=== PATIENT | male | born 1975 | race Caucasian/White ===

== ENCOUNTER 2017-01-15 16:16 | Inpatient (IN) | payer MEDICAID ==
[~2017-01-15] VITALS: Ht 180.3 cm; Wt 121.4 kg
[2017-01-15 17:18] LABS: BASOPHIL % 0.3 % (0-2); PLATELET COUNT 185 x10^3mcL (130-400); RED CELL DISTRIBUTION WIDTH 14.2 % (11.5-14.5)
--- NOTE | 2017-01-15 17:25 | NUR ---
PT PRESENTS TO ED WITH THE COMPLAINT OF EPIGASTRIC AND SUPRA PUBIC ABDOMINAL PAIN WHICH HAS BEEN INTERMITTENT X 4 DAYS. PT ALSO HAS A COMPLAINT OF NAUSEA AND VOMITING. PT ADMITS TO USING [employer]. MSE COMPLETED BY DR. DELA CRUZ
[2017-01-15 17:47] LABS: CALCIUM 8.9 mg/dL (8.5-10.1); CARBON DIOXIDE 25.5 mmol/L (21-32); CHLORIDE SERUM 101 mmol/L (98-107); CREATININE SERUM 1.2 mg/dL (0.7-1.3); GFR1 > 60 mL/min; GLUCOSE SERUM 119 mg/dL (74-106); POTASSIUM SERUM 3.4 mmol/L (3.5-5.1); SODIUM SERUM 138 mmol/L (136-145)
--- NOTE | 2017-01-15 17:47 | NUR ---
URINE DIP 4+ KETONES, TRACE PROTEIN. SENT TO LAB FOR UDS.
[2017-01-15 17:54] LABS: ALBUMIN 4.2 g/dL (3.4-5.0); ALKALINE PHOSPHATASE 65 U/L (46-116); ALT/SGPT 22 U/L (16-63); AMYLASE 48 U/L (25-115); AST/SGOT 18 U/L (15-37); BILIRUBIN TOTAL 1.08 mg/dL (0.20-1.00); LIPASE 148 IU/L (73-393); TOTAL PROTEIN, SERUM 7.6 g/dL (6.4-8.2)
[2017-01-15 18:04] LABS: AMPHETAMINE QUAL UR NONE DETECTED (NEG <=1000)
--- NOTE | 2017-01-15 18:15 | NUR ---
PT WENT TO AND FROM CT WITHOUT INCIDENCE
--- NOTE | 2017-01-15 18:50 | NUR ---
BED ADJUSTED, EXTRA BLANKET GIVEN, & ROOM DARKENED PER PT REQUEST.
--- NOTE | 2017-01-15 19:02 | NUR ---
RECEIVEDR DANO FROM [facility] TO ASSUME CARE OF PT.
--- NOTE | 2017-01-15 20:11 | NUR ---
REPROT CALLED TO [facility] BY KEITH Ramon. CONFIRMED THIS BY CALLING [phone] AND YULIANA.
[2017-01-15 20:35] VITALS: BP 116/67
[2017-01-15 20:44] LABS: CHOLESTEROL/HDL RATIO 3.9; PHOSPHOROUS 1.8 mg/dL (2.5-4.9)
[2017-01-15 20:50] LABS: T3 TOTAL 1.23 ng/mL
[2017-01-15 20:51] LABS: FREE T4 1.47 ng/dL (0.76-1.46); T4(THYROXINE) 11.4 ug/dL (4.7-13.3)
--- NOTE | 2017-01-15 21:00 | NUR ---
RECEIVED PT VIA GURNEY ACCOMPANIED BY THE NURSE AND THE PATIENTS SIGNIFICANT OTHER. PT IS A/A/O X4. DENIES DIZZINESS AND HEADACHE. BREATH SOUNDS CLEAR. BREATHING EVEN AND UNLABORED ON ROOM AIR, SPO2 99%. DENIES CHEST PAIN AND PRESSURE. ON TELE # 21, SINUS ARRHYTHMIA WITH EPISODES OF SINUS RHYTHYM ON THE MONITOR. BOWEL SOUNDS ACTIVE. C/O EPIGASTRIC PAIN WITH PAIN LEVEL OF 7/10. DENIES NEED OF PAIN MEDICATION, STATING "PAIN IS GOING DOWN.". NO C/O NAUSEA AND VOMITING THUS FAR. IV INTACT ON THE LEFT HAND INFUSING WITH NS AT 100 ML/HR. MADE PT COMFORTABLE. PLACED CALL LIGHT WITH IN REACH. WILL CONTINUE TO MONITOR.
--- NOTE | 2017-01-15 21:05 | NUR ---
PATIENTS LEFT LEG OBSERVED TO BE BIGGER THAN THE RIGHT LEG. MADE PT COMFORTABLE. WILL CONTINUE TO MONITOR.
[2017-01-15 21:08] LABS: UA SPECIFIC GRAVITY 1.015 (1.005-1.035); microscopic required? YES; urine erythrocyte NEGATIVE (NEGATIVE)
[2017-01-15 22:01] VITALS: BP 116/69
[2017-01-15 23:43] VITALS: BP 121/60
--- NOTE | 2017-01-15 23:43 | NUR ---
WAS NOTIFIED BY THE WEB ART DIRECTOR THAT THE PT HAS ELEVATED T WAVE FROM SINUS RHYTHYM. PT ASSYMPTOMATIC. VITAL SIGNS STABLE. DR. AGUIRRE NOTIFIED. NO NEW ORDERS GIVEN. WILL CONTINUE TO MONITOR.
--- NOTE | 2017-01-16 00:23 | NUR ---
PT C/O ABD PAIN. GAVE PT MORPHINE IVP. PT TOLERATED IT WELL. WILL CONTINUE TO MONITOR.
[2017-01-16 05:20] VITALS: BP 114/72
[2017-01-16 06:27] LABS: BASOPHIL % 0.1 % (0-2); PLATELET COUNT 156 x10^3mcL (130-400); RED CELL DISTRIBUTION WIDTH 14.4 % (11.5-14.5)
--- NOTE | 2017-01-16 06:37 | NUR ---
PT QUIET AND RESTING. PAIN LEVEL OF ABD 6/10. DENIES NEED FOR PAIN MEDICATION. NO C/O NAUSEA. IV INTACT AND INFUSING ORDERED. MADE PT COMFORTABLE. WILL ENDORSE TO THE AM NURSE ACCORDINGLY.
[2017-01-16 06:45] LABS: CARBON DIOXIDE 25.5 mmol/L (21-32); CHLORIDE SERUM 105 mmol/L (98-107); CREATININE SERUM 1.1 mg/dL (0.7-1.3); GFR1 > 60 mL/min; GLUCOSE SERUM 106 mg/dL (74-106); POTASSIUM SERUM 3.1 mmol/L (3.5-5.1); SODIUM SERUM 138 mmol/L (136-145)
--- NOTE | 2017-01-16 07:15 | NUR ---
PT WAS ENDORSE TO ME THIS MORNING. PT A/O X4. PT BREATHING EVEN AND UNLABORED. PT DENIES ANY ABD PAIN AND NAUSEA AT THIS TIME. IV INFUSING TO THE L HAND AT 100 ML/HR AT NS. NO REDNESS OR SWELLING NOTED. CALL LIGHT IN REACH. BED IN LOW POSITION. WILL CONTINUE PLAN OF CARE.
[2017-01-16 11:13] VITALS: BP 114/86
--- NOTE | 2017-01-16 13:00 | NUR ---
PT ATE HIS LUNCH. STATED TOLERATED IT WELL. PT IS BY HIS SIDE. PT DENIES ANY PAIN AT THIS TIME. CALL LIGHT IN REACH. BED IN LOW POSITION. WILL CONTINUE PLAN OF CARE.
--- NOTE | 2017-01-16 13:19 | NUR ---
PT C/O ABD PAIN 11/22. WILL MEDICATED WITH NORCO. WILL CONTINUE PLAN OF CARE.
[2017-01-16 17:44] VITALS: BP 114/81
--- NOTE | 2017-01-16 19:01 | NUR ---
PT IS RESTING WATCHING TV. PT DENIES ANY ABD PAIN AT THIS TIME. VS STABLE. IV TO L HAND NS AT 100 ML/HR. NO REDNESS OR SWELLING NOTED. CALL LIGHT IN REACH. BED IN LOW POSITION. WILL ENDORSE PT TO INCOMING NURSE.
--- NOTE | 2017-01-16 19:55 | NUR ---
PT A/A/O X4. DENIES DIZZINESS AND HEADACHE. BREATH SOUNDS CLEAR. BREATHING EVEN AND UNLABORED ON ROOM AIR. DENIES CHEST PAIN AND PRESSURE. BOWEL SOUNDS ACTIVE. NO C/O N/V AND ABD PAIN THUS FAR. NOTED THAT LEG LEG IS BIGGER THAN THE RIGHT LEG. NO C/O PAIN THUS FAR. IV INTACT ON THE LEFT HAND INFUSING WITH NS AT 100 ML/HR. MADE PT COMFORTABLE. PLACED CALL LIGHT WITH IN REACH. WILL CONTINUE TO MONITOR.
[2017-01-16 20:57] VITALS: BP 112/58; BP 117/74
--- NOTE | 2017-01-17 00:16 | NUR ---
PT RESTING WITH EYES CLOSED. SHOWS NO DISTRESS AND DISCOMFORT. MADE PT COMFORTABLE. WILL CONTINUE TO MONITOR.
--- NOTE | 2017-01-17 05:08 | NUR ---
PT RESTING WITH EYES CLOSED. EASILY AROUSABLE WITH VERBAL STIMULI. NO C/O ABD PAIN AND NAUSEA THUS FAR. IV INTACT AND INFUSING ORDERED. MADE PT COMFORTABLE. WILL ENDORSE TO THE AM NURSE ACCORDINGLY.
[2017-01-17 05:59] VITALS: BP 105/51
[2017-01-17 06:31] LABS: CARBON DIOXIDE 26.6 mmol/L (21-32); CHLORIDE SERUM 107 mmol/L (98-107); CREATININE SERUM 1.1 mg/dL (0.7-1.3); GFR1 > 60 mL/min; GLUCOSE SERUM 87 mg/dL (74-106); MAGNESIUM 1.9 mg/dL (1.8-2.4); PHOSPHOROUS 3.6 mg/dL (2.5-4.9); POTASSIUM SERUM 3.8 mmol/L (3.5-5.1); SODIUM SERUM 142 mmol/L (136-145)
[2017-01-17 07:03] LABS: BASOPHIL % 0.1 % (0-2); PLATELET COUNT 155 x10^3mcL (130-400); RED CELL DISTRIBUTION WIDTH 14.1 % (11.5-14.5)
--- NOTE | 2017-01-17 07:35 | NUR ---
RECEIVED PT IN NO ACUTE DISTRESS. RESTING WITH EYES CLOSED BUT EASILY AROUSABLE. NO PAIN NOTED. LLE ELEVATED. IVF INFUSING. BED IN LOWEST POSITION, SIDE RAILS UP X2. CALL LIGHT WITHIN REACH. WILL CONTINUE TO MONITOR.
[2017-01-17 07:45] VITALS: BP 105/57
[2017-01-17] MEDS ORDERED: COL100 PO (08:37)
[2017-01-17] MEDS ORDERED: THERA TABS1 TAB PO (08:40)
[2017-01-17] MEDS ORDERED: PROTONIX40 MG/Pac1 PO (08:40)
[2017-01-17] MEDS ORDERED: ZOFRAN ODT4 MG SL (08:41)
[2017-01-17] MEDS ORDERED: APAP/HYDROCODON1 T13 PO (08:42)
--- NOTE | 2017-01-17 12:43 | NUR ---
PT SITTING UP IN BED EATING LUNCH. NO ACUTE DISTRESS. C/O PRESSURE LIKE DISCOMFORT ON ABD SIDES, REQUESTED LAXATIVE. LAXATIVE GIVEN ORDERED. BED IN LOWEST POSITION, CALL LIGHT WITHIN REACH. WILL CONTINUE TO MONITOR.
[2017-01-17 12:51] VITALS: BP 105/57
--- NOTE | 2017-01-17 14:21 | NUR ---
PT DISCHARGED TO HOME IN NO ACUTE DISTRESS. AWAKE, ALERT, AND ORIENTED. VSS. AMBULATORY. RX GIVEN. DISCHARGE EDUCATION PROVIDED, PT VERBALIZED UNDERSTANDING. INSTRUCTED PT TO FOLLOW UP WITH PCP. BELONGINGS WITH PT. IV DC'D INTACT. ABEL STUDENT NURSE ASSISTED PT TO DISCHARGE OFFICE.
== END 2017-01-17 14:21 | disposition home or self-care (01) | DRG 812 ==
LOC: ED 16:16 → DU 19:00 → MU 19:00 → DU 20:17 → MU 01-16 11:19
PROVIDERS: Emergency Medicine; ADMIT Family Medicine
DX: T40.7X1A Poisoning by cannabis (derivatives), accidental (unintentional), initial encounter (principal); N17.0 Acute kidney failure with tubular necrosis; R11.2 Nausea with vomiting, unspecified; F12.188 Cannabis abuse with other cannabis-induced disorder; E87.6 Hypokalemia; E83.39 Other disorders of phosphorus metabolism; R82.4 Acetonuria; R73.03 Prediabetes; E78.5 Hyperlipidemia, unspecified; M47.897 Other spondylosis, lumbosacral region; D64.9 Anemia, unspecified; E66.9 Obesity, unspecified; Z68.37 Body mass index [BMI] 37.0-37.9, adult; Y92.009 Unspecified place in unspecified non-institutional (private) residence as the place of occurrence of the external cause
CPT/HCPCS: 82962; 83880; 84439; J2270; J2405; J3490; J7030; Q0092

== ENCOUNTER 2017-09-29 18:05 | Emergency (ER) | payer MEDICAID ==
[~2017-09-29] VITALS: Ht 180.3 cm; Wt 130.6 kg
[~2017-09-29 18:05] MED LIST: APAP/HYDROCODON1 T13 PO; COL100 PO; PROTONIX40 MG/Pac1 PO; THERA TABS1 TAB PO; ZOFRAN ODT4 MG SL
[2017-09-29 18:11] VITALS: Ht 180.3 cm; Wt 130.6 kg
[2017-09-29 19:55] VITALS: BP 115/86
== END 2017-09-29 19:55 | disposition home or self-care (01) ==
LOC: ED 18:05
DX: J06.9 Acute upper respiratory infection, unspecified (principal); M54.6 Pain in thoracic spine
CPT/HCPCS: 82962; Q0092

== ENCOUNTER 2018-06-01 11:26 | Inpatient (IN) | payer MEDICAID ==
[~2018-06-01] VITALS: Ht 180.3 cm; Wt 134.0 kg
[2018-06-01 12:09] LABS: PLATELET COUNT 178 x10^3mcL (130-400)
[2018-06-01 12:23] LABS: RED CELL DISTRIBUTION WIDTH 17.9 % (11.5-14.5)
[2018-06-01 12:27] LABS: CALCIUM 8.7 mg/dL (8.5-10.1); CARBON DIOXIDE 27.4 mmol/L (21-32); CHLORIDE SERUM 108 mmol/L (98-107); CREATININE SERUM 1.1 mg/dL (0.7-1.3); GFR1 > 60 mL/min; GLUCOSE SERUM 101 mg/dL (74-106); POTASSIUM SERUM 3.8 mmol/L (3.5-5.1); SODIUM SERUM 142 mmol/L (136-145)
[2018-06-01 12:39] LABS: ALBUMIN 3.7 g/dL (3.4-5.0); ALKALINE PHOSPHATASE 88 U/L (46-116); ALT/SGPT 39 U/L (16-63); AST/SGOT 18 U/L (15-37); BILIRUBIN TOTAL 0.49 mg/dL (0.20-1.00); C REACTIVE PROTEIN 10.3 mg/dL (<=0.9); TOTAL PROTEIN, SERUM 7.5 g/dL (6.4-8.2)
[2018-06-01 12:51] LABS: T3 TOTAL 1.26 ng/mL
[2018-06-01 13:05] LABS: microscopic required? NO
[2018-06-01 13:06] LABS: BAND NEUTROPHIL 8 % (0-10); FREE T4 1.01 ng/dL (0.76-1.46); FREE THYROXINE INDEX 2.9 ug/dL (1.4-4.5); MONOCYTE 2 % (0-7); SEGMENTED NEUTROPHILS 50 % (37-75); T4(THYROXINE) 8.8 ug/dL (4.7-13.3); rbc morphology (normal/abnorm) ABNORMAL (NORMAL)
[2018-06-01 13:22] LABS: urine erythrocyte NEGATIVE (NEGATIVE)
[2018-06-01 13:27] LABS: ERYTHROCYTE SED RATE 79 mm/hr (0-15)
[2018-06-01 14:39] LABS: CHOLESTEROL/HDL RATIO 4.2; MAGNESIUM 1.8 mg/dL (1.8-2.4); PHOSPHOROUS 2.9 mg/dL (2.5-4.9)
[2018-06-01 15:49] VITALS: BP 136/79
[2018-06-01 15:52] VITALS: Ht 180.3 cm; Wt 134.0 kg
[2018-06-01 20:30] VITALS: BP 121/78
[2018-06-01 22:48] LABS: AMPHETAMINE QUAL UR NONE DETECTED (See below)
[2018-06-02 05:13] VITALS: BP 107/72
[2018-06-02 06:42] LABS: CALCIUM 8.1 mg/dL (8.5-10.1); CARBON DIOXIDE 27.6 mmol/L (21-32); CHLORIDE SERUM 107 mmol/L (98-107); CREATININE SERUM 1.1 mg/dL (0.7-1.3); GFR1 > 60 mL/min; GLUCOSE SERUM 115 mg/dL (74-106); MAGNESIUM 1.8 mg/dL (1.8-2.4); PHOSPHOROUS 2.8 mg/dL (2.5-4.9); POTASSIUM SERUM 4.1 mmol/L (3.5-5.1); SODIUM SERUM 143 mmol/L (136-145)
[2018-06-02 07:47] VITALS: BP 116/70
[2018-06-02 09:37] LABS: PLATELET COUNT 155 x10^3mcL (130-400)
[2018-06-02 11:52] VITALS: BP 120/79
[2018-06-02 13:39] LABS: BAND NEUTROPHIL 10 % (0-10); MONOCYTE 3 % (0-7); SEGMENTED NEUTROPHILS 62 % (37-75)
[2018-06-02 13:40] LABS: ovalocyte/elliptocyte 1+; rbc morphology (normal/abnorm) ABNORMAL (NORMAL)
[2018-06-02 16:53] VITALS: BP 110/60
[2018-06-02 21:01] VITALS: BP 126/67
[2018-06-03 05:12] VITALS: BP 113/65
[2018-06-03 07:56] LABS: PLATELET COUNT 158 x10^3mcL (130-400)
[2018-06-03 07:59] LABS: RED CELL DISTRIBUTION WIDTH 16.9 % (11.5-14.5)
[2018-06-03 08:01] LABS: CALCIUM 8.4 mg/dL (8.5-10.1); CARBON DIOXIDE 28.3 mmol/L (21-32); CHLORIDE SERUM 103 mmol/L (98-107); GFR1 > 60 mL/min; GLUCOSE SERUM 101 mg/dL (74-106); MAGNESIUM 1.9 mg/dL (1.8-2.4); PHOSPHOROUS 2.5 mg/dL (2.5-4.9); POTASSIUM SERUM 3.8 mmol/L (3.5-5.1); SODIUM SERUM 138 mmol/L (136-145)
[2018-06-03 09:08] VITALS: BP 111/73
[2018-06-03 09:41] LABS: BAND NEUTROPHIL 12 % (0-10); BASOPHIL 0 % (0-2); MONOCYTE 3 % (0-7); SEGMENTED NEUTROPHILS 58 % (37-75)
[2018-06-03 09:42] LABS: PLATELET MORPHOLOGY PLATELETS NORMAL; ovalocyte/elliptocyte 1+; rbc morphology (normal/abnorm) ABNORMAL (NORMAL)
[2018-06-03 13:43] VITALS: BP 110/71
[2018-06-03 17:37] VITALS: BP 132/74
[2018-06-03 20:52] VITALS: BP 129/76
[2018-06-04 06:21] VITALS: BP 108/70
[2018-06-04 06:29] LABS: CALCIUM 8.8 mg/dL (8.5-10.1); CARBON DIOXIDE 29.8 mmol/L (21-32); CHLORIDE SERUM 105 mmol/L (98-107); GFR1 > 60 mL/min; GLUCOSE SERUM 101 mg/dL (74-106); POTASSIUM SERUM 3.9 mmol/L (3.5-5.1); SODIUM SERUM 140 mmol/L (136-145)
[2018-06-04 06:34] LABS: PLATELET COUNT 192 x10^3mcL (130-400)
[2018-06-04 07:40] LABS: RED CELL DISTRIBUTION WIDTH 17.1 % (11.5-14.5)
[2018-06-04 07:54] VITALS: BP 132/75
[2018-06-04 11:28] LABS: ATYPICAL LYMPH 2 %; BAND NEUTROPHIL 0 % (0-10); BASOPHIL 0 % (0-2); MONOCYTE 0 % (0-7); SEGMENTED NEUTROPHILS 66 % (37-75)
[2018-06-04 11:29] LABS: PLATELET MORPHOLOGY PLATELETS DECREASED; rbc morphology (normal/abnorm) ABNORMAL (NORMAL)
[2018-06-04 17:23] VITALS: BP 113/67
[2018-06-04 21:39] VITALS: BP 124/62
[2018-06-05 05:14] VITALS: BP 120/72
[2018-06-05 06:36] LABS: CALCIUM 8.4 mg/dL (8.5-10.1); CHLORIDE SERUM 104 mmol/L (98-107); CREATININE SERUM 0.9 mg/dL (0.7-1.3); GFR1 > 60 mL/min; GLUCOSE SERUM 204 mg/dL (74-106); SODIUM SERUM 138 mmol/L (136-145)
[2018-06-05 07:02] LABS: PLATELET COUNT 194 x10^3mcL (130-400)
[2018-06-05 07:18] LABS: RED CELL DISTRIBUTION WIDTH 17.8 % (11.5-14.5)
[2018-06-05 08:30] VITALS: BP 102/61
[2018-06-05 11:06] LABS: BAND NEUTROPHIL 10 % (0-10); BASOPHIL 0 % (0-2); MONOCYTE 2 % (0-7); SEGMENTED NEUTROPHILS 76 % (37-75)
[2018-06-05 11:08] LABS: PLATELET MORPHOLOGY PLATELETS NORMAL; ovalocyte/elliptocyte 1+; rbc morphology (normal/abnorm) ABNORMAL (NORMAL)
[2018-06-05 12:48] VITALS: BP 118/66
[2018-06-05 16:15] VITALS: BP 110/64
[2018-06-05 20:58] VITALS: BP 127/82
[2018-06-06 05:43] VITALS: BP 98/67
[2018-06-06 06:54] LABS: PLATELET COUNT 198 x10^3mcL (130-400)
[2018-06-06 07:02] LABS: RED CELL DISTRIBUTION WIDTH 17.4 % (11.5-14.5)
[2018-06-06 07:12] LABS: CALCIUM 8.2 mg/dL (8.5-10.1); CHLORIDE SERUM 106 mmol/L (98-107); CREATININE SERUM 0.9 mg/dL (0.7-1.3); GFR1 > 60 mL/min; GLUCOSE SERUM 104 mg/dL (74-106); POTASSIUM SERUM 3.6 mmol/L (3.5-5.1); SODIUM SERUM 142 mmol/L (136-145)
[2018-06-06] MEDS ORDERED: BD LACTINEX1.4 MG PO (07:27)
[2018-06-06] MEDS ORDERED: BACTRIM DS1 TAB PO (07:27)
[2018-06-06] MEDS ORDERED: NORCO1 TA2 PO (07:30)
[2018-06-06 08:16] VITALS: BP 109/47
[2018-06-06 08:22] VITALS: BP 98/67
[2018-06-06 09:16] VITALS: BP 98/67
[2018-06-06 10:58] LABS: BAND NEUTROPHIL 11 % (0-10); BASOPHIL 0 % (0-2); MONOCYTE 3 % (0-7); SEGMENTED NEUTROPHILS 56 % (37-75)
[2018-06-06 10:59] LABS: PLATELET MORPHOLOGY PLATELETS NORMAL; rbc morphology (normal/abnorm) ABNORMAL (NORMAL)
[2018-06-06 11:01] LABS: ovalocyte/elliptocyte 1+
== END 2018-06-06 12:57 | disposition home or self-care (01) | DRG 383 ==
LOC: ED 11:26 → DU 14:07 → MU 14:07 → DU 15:30
PROVIDERS: Family Medicine; Internal Medicine; Specialist; Surgery
PROC: 0JBP0ZZ Excision of Left Lower Leg Subcutaneous Tissue and Fascia, Open Approach (ICD-10-PCS; 2018-06-04)
PROC: 0J9P3ZZ Drainage of Left Lower Leg Subcutaneous Tissue and Fascia, Percutaneous Approach (ICD-10-PCS; principal; 2018-06-04 09:00)
DX: L03.116 Cellulitis of left lower limb (principal); E66.01 Morbid (severe) obesity due to excess calories; Z68.41 Body mass index [BMI] 40.0-44.9, adult; D64.9 Anemia, unspecified; A49.02 Methicillin resistant Staphylococcus aureus infection, unspecified site; Z22.322 Carrier or suspected carrier of Methicillin resistant Staphylococcus aureus
CPT/HCPCS: 36600; 84439; J1644; J1885; J2270; J2405; J2543; J2704; J2920; J2930; J3010; J3370; J3490; J7030; J7040; J7120; Q0092

== ENCOUNTER 2020-09-11 17:05 | Emergency (ER) | payer OTHER, MEDICAID, SELFPAY ==
[~2020-09-11] VITALS: Ht 180.3 cm; Wt 115.7 kg
[~2020-09-11 17:05] MED LIST changes: +BACTRIM DS1 TAB PO; +BD LACTINEX1.4 MG PO; +NORCO1 TA2 PO
[2020-09-11 17:08] VITALS: Ht 180.3 cm; Wt 115.7 kg
[2020-09-11] MEDS ORDERED: ZOF4 PO (18:03)
[2020-09-11 18:15] VITALS: BP 143/72
== END 2020-09-11 18:15 | disposition home or self-care (01) ==
LOC: ED 17:05
DX: U07.1 COVID-19 (principal); A08.4 Viral intestinal infection, unspecified; Z88.2 Allergy status to sulfonamides
CPT/HCPCS: 87804; Q0162; U0003